=== PATIENT | female | born 1945 | race Asian ===

== ENCOUNTER 2022-11-07 08:31 | Emergency (ER) | payer OTHER ==
[~2022-11-07] VITALS: Ht 162.6 cm; Wt 129.7 kg
[2022-11-07 08:31] VITALS: TEMP 97.2
[2022-11-07 08:53] LABS: PLATELET COUNT 152 K/uL (152-353)
[2022-11-07 09:01] LABS: POTASSIUM 4.4 mmol/L (3.6-5.2)
[2022-11-07 09:36] LABS: PARTIAL THROMBOPLASTIN TIME 26.3 SECONDS (24.5-33.6)
[2022-11-07 10:05] VITALS: BP 153/81
== END 2022-11-07 10:46 | disposition short-term general hospital (02) ==
LOC: EDBD 08:31 → ED 08:31
PROVIDERS: Emergency Medicine
PROC: 0T9B70Z Drainage of Bladder with Drainage Device, Via Natural or Artificial Opening (ICD-10-PCS; principal; 2022-11-07)
DX: I63.9 Cerebral infarction, unspecified (principal); Z95.1 Presence of aortocoronary bypass graft; E11.9 Type 2 diabetes mellitus without complications; Z79.4 Long term (current) use of insulin; I10 Essential (primary) hypertension; Z98.890 Other specified postprocedural states
CPT/HCPCS: 51702; 80053; 81002; 83880; 84484; 85027; 85610; 85730; 93005; 99284